=== PATIENT | female | born 1990 | race Caucasian/White ===

== ENCOUNTER 2023-11-01 15:41 | Inpatient (IN) | payer OTHER, SELFPAY ==
[2023-11-01] MEDS: LR 1000 IV ×2 (15:00→17:18)
[2023-11-01 15:51] VITALS: BP 112/87; BMI 28.3
[2023-11-01 16:21] LABS: % Basophils 0.5 % (0-2); % Eosinophils 0.7 % (0-6); % Immature Granulocytes 0.5 % (0-0.5); % Lymphocytes 23.7 % (20.5-51.1); % Monocytes 7.2 % (1.7-9.3); % Neutrophils 67.4 % (42.2-75.2); Absolute Basophils 0.1 10^3/uL (0-0.2); Absolute Eosinophils 0.1 10^3/uL (0-0.7); Absolute Immature Granulocytes 0.1 10^3/uL (0-0.05); Absolute Lymphocytes 3.1 10^3/uL (1.2-3.4); Absolute Neutrophils 8.9 10^3/uL (1.4-6.5); Hematocrit 36.5 % (37.0-47.0); Hemoglobin 13.3 g/dL (12.0-16.0); Mean Corp Hgb Conc. 36.4 g/dL (33.0-37.0); Mean Corpuscular Hgb 31.5 pg (27.0-31.0); Mean Corpuscular Volume 86.5 fL (81.0-99.0); Mean Platelet Volume 10.8 fL (7.4-10.4); Nucleated Red Blood Cells % 0 %; Platelet Count 337 10^3/uL (130-400); Red Blood Cell Count 4.22 10^6/uL (4.20-5.40); Red Cell Dist. Width 13.1 % (11.5-14.5); White Blood Cell Count 13.1 10^3/uL (4.8-10.8)
[2023-11-01] MEDS: SUBLIMAZE 100 MCG EPIDURAL (17:04)
[2023-11-01] MEDS: FENTANYL/BUPIVACAINE 100 EPIDURAL (17:04)
[2023-11-01] MEDS: BICITRA 30 ML PO (20:18)
[2023-11-01] MEDS: TYLENOL 1000 MG PO (20:18)
[2023-11-01] MEDS: ANCEF 10 IV (20:25)
[2023-11-01] MEDS: TYLENOL 650 MG PO (23:26)
[2023-11-02] MEDS: MYLICON 80 MG PO (01:53)
[2023-11-02] MEDS: TORADOL 15 MG IV ×4 (02:51→21:16)
[2023-11-02] MEDS: PERCOCET 5/325 1 TABLET PO ×2 (03:49→21:30)
[2023-11-02 04:10] LABS: Hemoglobin 10.9 g/dL (12.0-16.0); Mean Corp Hgb Conc. 36.3 g/dL (33.0-37.0); Mean Corpuscular Hgb 31.4 pg (27.0-31.0); Mean Corpuscular Volume 86.5 fL (81.0-99.0); Mean Platelet Volume 10.6 fL (7.4-10.4); Platelet Count 261 10^3/uL (130-400); Red Blood Cell Count 3.47 10^6/uL (4.20-5.40); Red Cell Dist. Width 13.2 % (11.5-14.5); White Blood Cell Count 18.4 10^3/uL (4.8-10.8)
--- NOTE | 2023-11-02 07:15 | W.PN.ANS.POP ---
Anesthesia Post Operative
- Anesthesia Post Op Note
Vital Signs Stable-See Nursing Note: Yes
Airway Patent: Yes
Adequate Pain Control: Yes
Change in Mental Status: No
Current Postoperative Nausea & Vomiting: No
Anesthesia Complications: No
General Anesthetic Recall: No
Unplanned Admission: No
Post Op Hydration Adequate: Yes
[2023-11-02] MEDS: SENOKOT-S 1 TABLET PO (15:15)
[2023-11-02 16:40] LABS: Syphilis/T. pallidum Ab Reflex Negative (Negative)
[2023-11-03] MEDS: PERCOCET 5/325 1 TABLET PO ×2 (05:01→12:50)
[2023-11-03] MEDS: MOTRIN 600 MG PO ×2 (05:02→19:34)
[2023-11-03] MEDS: SENOKOT-S 1 TABLET PO (19:34)
[2023-11-04] MEDS: MOTRIN 600 MG PO ×2 (01:57→08:12)
[2023-11-04] MEDS: MYLICON 80 MG PO (08:12)
--- NOTE | 2023-11-04 11:54 | W.DS.TRANS ---
DC Summary - Podiatric Physician
-
Discharge Instructions:
Discharge Diagnosis/Procedures primary cs
Instructions:
Stand-Alone Forms: LDRP Delivery
Changes to Home Medications: No
Discharge Medications:
DC Medications w/original date entered in [facility]
prenat.vits,carmen,reb-qhlb-[id number] 1 tab PO DAILY Supplement 11/01/23
ibuprofen 600 mg tablet 600 mg PO Q6HPRN PRN cramps #90 tabs 11/04/23
Home Medication Changes
Pending Results: Yes
Additional Pending Results:
pathology
Total time spent discharging patient (in min): 20
== END 2023-11-04 13:06 | disposition home or self-care (01) | DRG 788 ==
LOC: LDRP 15:41
PROVIDERS: Obstetrics & Gynecology; ADMITTING PHYSICIAN Obstetrics & Gynecology; FAMILY PHYSICIAN Family Medicine
PROC: 10D00Z1 Extraction of Products of Conception, Low, Open Approach (ICD-10-PCS; 2023-11-02)
DX: O76 Abnormality in fetal heart rate and rhythm complicating labor and delivery (principal); O77.0 Labor and delivery complicated by meconium in amniotic fluid; Z3A.40 40 weeks gestation of pregnancy; Z37.0 Single live birth
CPT/HCPCS: 88307; 36415; 85025; 85027; 86780; 86850; 86900; 86901

== ENCOUNTER → 2025-04-13 08:35 | Outpatient (REF) | payer OTHER, SELFPAY | LOC: WDC 08:35 | PROVIDERS: ATTENDING PHYSICIAN Obstetrics & Gynecology | DX: N63.22 Unspecified lump in the left breast, upper inner quadrant (principal) | CPT/HCPCS: 76642 ==

== ENCOUNTER → 2025-04-20 08:30 | Outpatient (REF) | payer OTHER, SELFPAY ==
--- NOTE | 2025-04-20 15:20 | OID.BR.INTR ---
OID Breast Navigator - Initial
- -
Did not meet patient at time of biopsy. Will follow up per protocol.
== END ==
LOC: WDC 08:30
PROVIDERS: ATTENDING PHYSICIAN Obstetrics & Gynecology
DX: N63.22 Unspecified lump in the left breast, upper inner quadrant (principal)
CPT/HCPCS: 19083; 88305; A4648

== ENCOUNTER → 2025-04-30 09:55 | Outpatient (REF) | payer OTHER, SELFPAY | LOC: WDC 09:55 | PROVIDERS: ATTENDING PHYSICIAN Surgery; FAMILY PHYSICIAN Family Medicine | DX: R92.2 Inconclusive mammogram (principal); Z85.3 Personal history of malignant neoplasm of breast; C50.412 Malignant neoplasm of upper-outer quadrant of left female breast; Z17.1 Estrogen receptor negative status [ER-] | CPT/HCPCS: 76641 ==

== ENCOUNTER 2025-05-04 05:46 | Day surgery (SDC) | payer OTHER, SELFPAY ==
[2025-05-04] VITALS (8 sets, daily range): BP systolic 84–107; BP diastolic 55–74; BMI 22.7
[2025-05-04] MEDS: NORMOSOL-R/PLASMALYTE-A 1000 IV (06:25)
[2025-05-04] MEDS: VIBRAMYCIN 270 MG IV (06:25)
[2025-05-04] MEDS: NEURONTIN 300 MG PO (06:25)
[2025-05-04] MEDS: TYLENOL 1000 MG PO (06:25)
== END 2025-05-04 08:55 | disposition home or self-care (01) ==
LOC: SDS 05:46
PROVIDERS: ATTENDING PHYSICIAN Obstetrics & Gynecology
DX: O02.1 Missed abortion (principal); Z3A.08 8 weeks gestation of pregnancy
CPT/HCPCS: 59820; 86850; 86900; 86901; 88305

== ENCOUNTER → 2025-05-08 09:17 | Outpatient (REF) | payer OTHER, SELFPAY ==
[2025-05-08 10:05] VITALS: BP 112/83; BP_SYST 84; BMI 22.9
[2025-05-08] MEDS: ANCEF 5 IV (10:05)
[2025-05-08 11:10] VITALS: BP 101/72; BP_SYST 73
[2025-05-08 11:15] VITALS: BP 104/69; BP 97/71; BP_SYST 74; BP_SYST 90
== END ==
LOC: RADI 09:17
PROVIDERS: ATTENDING PHYSICIAN Internal Medicine Hematology & Oncology
DX: C50.212 Malignant neoplasm of upper-inner quadrant of left female breast (principal)
CPT/HCPCS: 36561; 76937; 77001; 99152; 99153; C1788

== ENCOUNTER → 2025-05-21 08:29 | Outpatient (REF) | payer OTHER, SELFPAY ==
[2025-05-21 08:43] LABS: Hematocrit 34.6 % (37.0-47.0); Hemoglobin 11.9 g/dL (12.0-16.0); Mean Corp Hgb Conc. 34.4 g/dL (33.0-37.0); Mean Corpuscular Volume 88.9 fL (81.0-99.0); Platelet Count 276 10^3/uL (130-400); Red Cell Dist. Width 12.1 % (11.5-14.5)
--- NOTE | 2025-05-21 13:19 | W.PN.GENERIC ---
Assessment / Plan
-
The site was cleansed with Chloroprep, skin prep was applied prior to placement of two steri-strips which brought the edges together. Pt advised to keep strips in place for 5-7days. She was advised to call IR to return for a repeat site check if
she becomes febrile, experiences pain, redness or discharge from the site. Pt demonstrated understanding and was d/c'd to home in stable condition.
Physician Progress Note
Subjective
Pt sent from Oncology office for a chest port site check. Pt is without complaints, and denies fever, chills and/or pain. She reports having pulled the remnant surgical glue off and noticed there was a small opening of the incision. The port is
reportedly fully functioning.
Objective
Lab Results
05/21/25 08:40
The lateral 2mm of the port incision is not in opposition like the rest of the incision. No subcutaneous tissue is seen. There is no erythema, ecchymosis, warmth, discharge or tenderness noted at the port site.
[2025-05-21 16:29] LABS: ALT (SGPT) 19 U/L (0-35); AST (SGOT) 19 U/L (14-36); Albumin 4.6 g/dl (3.5-5.0); Alkaline Phosphatase 47 U/L (38-126); Blood Urea Nitrogen 10 mg/dl (7-17); Calcium 9.4 mg/dl (8.4-10.2); Carbon Dioxide 23 mmol/L (22-30); Chloride 105 mmol/L (98-107); Glucose 109 mg/dl (70-99); Potassium 4.0 mmol/L (3.5-5.1); Sodium 133 mmol/L (135-145); Total Protein 6.9 g/dl (6.3-8.2); eGFR > 60.00
== END ==
LOC: OIDL 08:29
PROVIDERS: ATTENDING PHYSICIAN Internal Medicine Hematology & Oncology
DX: C50.212 Malignant neoplasm of upper-inner quadrant of left female breast (principal)
CPT/HCPCS: 36415; 80053; 84443; 85025

== ENCOUNTER → 2025-05-28 07:47 | Outpatient (REF) | payer OTHER, SELFPAY ==
[2025-05-28 08:01] LABS: Hematocrit 31.3 % (37.0-47.0); Hemoglobin 11.1 g/dL (12.0-16.0); Mean Corp Hgb Conc. 35.5 g/dL (33.0-37.0); Mean Corpuscular Volume 88.7 fL (81.0-99.0); Platelet Count 256 10^3/uL (130-400); Red Cell Dist. Width 12.6 % (11.5-14.5)
[2025-05-28 09:29] LABS: ALT (SGPT) 21 U/L (0-35); AST (SGOT) 20 U/L (14-36); Albumin 4.3 g/dl (3.5-5.0); Alkaline Phosphatase 46 U/L (38-126); Blood Urea Nitrogen 8 mg/dl (7-17); Calcium 9.0 mg/dl (8.4-10.2); Carbon Dioxide 25 mmol/L (22-30); Chloride 104 mmol/L (98-107); Glucose 108 mg/dl (70-99); Potassium 3.9 mmol/L (3.5-5.1); Sodium 138 mmol/L (135-145); Total Protein 6.6 g/dl (6.3-8.2); eGFR > 60.00
== END ==
LOC: OIDL 07:47
PROVIDERS: ATTENDING PHYSICIAN Internal Medicine Hematology & Oncology
DX: C50.212 Malignant neoplasm of upper-inner quadrant of left female breast (principal)
CPT/HCPCS: 36415; 80053; 84443; 85025

== ENCOUNTER → 2025-05-30 15:06 | Outpatient (REF) | payer OTHER, SELFPAY | LOC: RAD 15:06 | PROVIDERS: ATTENDING PHYSICIAN Internal Medicine Hematology & Oncology; FAMILY PHYSICIAN Family Medicine | DX: C50.212 Malignant neoplasm of upper-inner quadrant of left female breast (principal); M79.662 Pain in left lower leg | CPT/HCPCS: 93971 ==

== ENCOUNTER → 2025-06-04 08:02 | Outpatient (REF) | payer OTHER, SELFPAY ==
[2025-06-04 08:54] LABS: Hematocrit 35.0 % (37.0-47.0); Hemoglobin 12.1 g/dL (12.0-16.0); Mean Corp Hgb Conc. 34.6 g/dL (33.0-37.0); Mean Corpuscular Volume 89.1 fL (81.0-99.0); Platelet Count 355 10^3/uL (130-400); Red Cell Dist. Width 13.0 % (11.5-14.5)
[2025-06-04 09:30] LABS: ALT (SGPT) 42 U/L (0-35); AST (SGOT) 28 U/L (14-36); Albumin 4.7 g/dl (3.5-5.0); Alkaline Phosphatase 47 U/L (38-126); Blood Urea Nitrogen 10 mg/dl (7-17); Calcium 9.4 mg/dl (8.4-10.2); Carbon Dioxide 26 mmol/L (22-30); Chloride 104 mmol/L (98-107); Glucose 74 mg/dl (70-99); Potassium 4.0 mmol/L (3.5-5.1); Sodium 139 mmol/L (135-145); Total Protein 7.1 g/dl (6.3-8.2); eGFR > 60.00
== END ==
LOC: OIDL 08:02
PROVIDERS: ATTENDING PHYSICIAN Internal Medicine Hematology & Oncology
DX: C50.212 Malignant neoplasm of upper-inner quadrant of left female breast (principal)
CPT/HCPCS: 36415; 80053; 85025

== ENCOUNTER → 2025-06-11 08:03 | Outpatient (REF) | payer OTHER, SELFPAY ==
[2025-06-11 08:20] LABS: Hematocrit 35.3 % (37.0-47.0); Hemoglobin 12.4 g/dL (12.0-16.0); Mean Corp Hgb Conc. 35.1 g/dL (33.0-37.0); Mean Corpuscular Volume 88.5 fL (81.0-99.0); Platelet Count 331 10^3/uL (130-400); Red Cell Dist. Width 13.2 % (11.5-14.5)
[2025-06-11 09:37] LABS: ALT (SGPT) 29 U/L (0-35); AST (SGOT) 20 U/L (14-36); Albumin 4.8 g/dl (3.5-5.0); Alkaline Phosphatase 63 U/L (38-126); Blood Urea Nitrogen 10 mg/dl (7-17); Calcium 9.5 mg/dl (8.4-10.2); Carbon Dioxide 27 mmol/L (22-30); Chloride 104 mmol/L (98-107); Glucose 87 mg/dl (70-99); Potassium 4.1 mmol/L (3.5-5.1); Sodium 138 mmol/L (135-145); Total Protein 7.1 g/dl (6.3-8.2); eGFR > 60.00
== END ==
LOC: OIDL 08:03
PROVIDERS: ATTENDING PHYSICIAN Internal Medicine Hematology & Oncology
DX: C50.212 Malignant neoplasm of upper-inner quadrant of left female breast (principal)
CPT/HCPCS: 36415; 80053; 84443; 85025

== ENCOUNTER → 2025-06-18 08:30 | Outpatient (REF) | payer OTHER, SELFPAY ==
[2025-06-18 08:42] LABS: Hematocrit 36.1 % (37.0-47.0); Hemoglobin 12.6 g/dL (12.0-16.0); Mean Corp Hgb Conc. 34.9 g/dL (33.0-37.0); Mean Corpuscular Volume 89.1 fL (81.0-99.0); Platelet Count 318 10^3/uL (130-400); Red Cell Dist. Width 13.2 % (11.5-14.5)
[2025-06-18 10:11] LABS: ALT (SGPT) 26 U/L (0-35); AST (SGOT) 23 U/L (14-36); Albumin 5.0 g/dl (3.5-5.0); Alkaline Phosphatase 49 U/L (38-126); Blood Urea Nitrogen 9 mg/dl (7-17); Calcium 9.8 mg/dl (8.4-10.2); Carbon Dioxide 28 mmol/L (22-30); Chloride 103 mmol/L (98-107); Glucose 88 mg/dl (70-99); Potassium 4.1 mmol/L (3.5-5.1); Sodium 139 mmol/L (135-145); Total Protein 7.6 g/dl (6.3-8.2); eGFR > 60.00
[2025-06-18 10:38] LABS: TSH 1.51 uIU/ml (0.47-4.68)
== END ==
LOC: OIDL 08:30
PROVIDERS: ATTENDING PHYSICIAN Internal Medicine Hematology & Oncology
DX: C50.212 Malignant neoplasm of upper-inner quadrant of left female breast (principal)
CPT/HCPCS: 36415; 80053; 84439; 84443; 85025

== ENCOUNTER → 2025-06-25 08:17 | Outpatient (REF) | payer OTHER, SELFPAY ==
[2025-06-25 08:28] LABS: Hematocrit 34.1 % (37.0-47.0); Hemoglobin 11.7 g/dL (12.0-16.0); Mean Corp Hgb Conc. 34.3 g/dL (33.0-37.0); Mean Corpuscular Volume 89.3 fL (81.0-99.0); Platelet Count 255 10^3/uL (130-400); Red Cell Dist. Width 13.3 % (11.5-14.5)
[2025-06-25 09:38] LABS: ALT (SGPT) 23 U/L (0-35); AST (SGOT) 23 U/L (14-36); Albumin 4.8 g/dl (3.5-5.0); Alkaline Phosphatase 42 U/L (38-126); Blood Urea Nitrogen 10 mg/dl (7-17); Calcium 9.2 mg/dl (8.4-10.2); Carbon Dioxide 28 mmol/L (22-30); Chloride 104 mmol/L (98-107); Glucose 94 mg/dl (70-99); Potassium 3.8 mmol/L (3.5-5.1); Sodium 138 mmol/L (135-145); Total Protein 7.4 g/dl (6.3-8.2); eGFR > 60.00
== END ==
LOC: OIDL 08:17
PROVIDERS: ATTENDING PHYSICIAN Internal Medicine Hematology & Oncology
DX: C50.212 Malignant neoplasm of upper-inner quadrant of left female breast (principal)
CPT/HCPCS: 36415; 80053; 85025

== ENCOUNTER → 2025-07-02 08:07 | Outpatient (REF) | payer OTHER, SELFPAY ==
[2025-07-02 08:20] LABS: Hematocrit 35.8 % (37.0-47.0); Hemoglobin 12.5 g/dL (12.0-16.0); Mean Corp Hgb Conc. 34.9 g/dL (33.0-37.0); Mean Corpuscular Volume 88.8 fL (81.0-99.0); Platelet Count 268 10^3/uL (130-400); Red Cell Dist. Width 13.3 % (11.5-14.5)
[2025-07-02 09:24] LABS: ALT (SGPT) 20 U/L (0-35); AST (SGOT) 21 U/L (14-36); Albumin 4.8 g/dl (3.5-5.0); Alkaline Phosphatase 52 U/L (38-126); Blood Urea Nitrogen 12 mg/dl (7-17); Calcium 9.7 mg/dl (8.4-10.2); Carbon Dioxide 29 mmol/L (22-30); Chloride 101 mmol/L (98-107); Glucose 88 mg/dl (70-99); Potassium 4.2 mmol/L (3.5-5.1); Sodium 138 mmol/L (135-145); Total Protein 7.2 g/dl (6.3-8.2); eGFR > 60.00
== END ==
LOC: OIDL 08:07
PROVIDERS: ATTENDING PHYSICIAN Internal Medicine Hematology & Oncology
DX: C50.212 Malignant neoplasm of upper-inner quadrant of left female breast (principal)
CPT/HCPCS: 36415; 80053; 84443; 85025

== ENCOUNTER → 2025-07-09 08:00 | Outpatient (REF) | payer OTHER, SELFPAY ==
[2025-07-09 08:09] LABS: Hematocrit 33.2 % (37.0-47.0); Hemoglobin 11.8 g/dL (12.0-16.0); Mean Corp Hgb Conc. 35.5 g/dL (33.0-37.0); Mean Corpuscular Volume 88.8 fL (81.0-99.0); Platelet Count 262 10^3/uL (130-400); Red Cell Dist. Width 13.4 % (11.5-14.5)
[2025-07-09 09:00] LABS: ALT (SGPT) 18 U/L (0-35); AST (SGOT) 20 U/L (14-36); Albumin 4.7 g/dl (3.5-5.0); Alkaline Phosphatase 41 U/L (38-126); Blood Urea Nitrogen 12 mg/dl (7-17); Calcium 9.2 mg/dl (8.4-10.2); Carbon Dioxide 26 mmol/L (22-30); Chloride 104 mmol/L (98-107); Glucose 101 mg/dl (70-99); Potassium 4.0 mmol/L (3.5-5.1); Sodium 137 mmol/L (135-145); Total Protein 7.3 g/dl (6.3-8.2); eGFR > 60.00
== END ==
LOC: OIDL 08:00
PROVIDERS: ATTENDING PHYSICIAN Internal Medicine Hematology & Oncology
DX: C50.212 Malignant neoplasm of upper-inner quadrant of left female breast (principal)
CPT/HCPCS: 36415; 80053; 85025

== ENCOUNTER → 2025-07-16 08:09 | Outpatient (REF) | payer OTHER, SELFPAY ==
[2025-07-16 08:24] LABS: Hematocrit 33.8 % (37.0-47.0); Hemoglobin 11.7 g/dL (12.0-16.0); Mean Corp Hgb Conc. 34.6 g/dL (33.0-37.0); Mean Corpuscular Volume 90.6 fL (81.0-99.0); Platelet Count 256 10^3/uL (130-400); Red Cell Dist. Width 13.5 % (11.5-14.5)
[2025-07-16 10:21] LABS: ALT (SGPT) 18 U/L (0-35); AST (SGOT) 21 U/L (14-36); Albumin 4.7 g/dl (3.5-5.0); Alkaline Phosphatase 44 U/L (38-126); Blood Urea Nitrogen 10 mg/dl (7-17); Calcium 9.5 mg/dl (8.4-10.2); Carbon Dioxide 27 mmol/L (22-30); Chloride 103 mmol/L (98-107); Glucose 89 mg/dl (70-99); Potassium 4.3 mmol/L (3.5-5.1); Sodium 138 mmol/L (135-145); Total Protein 6.9 g/dl (6.3-8.2); eGFR > 60.00
== END ==
LOC: OIDL 08:09
PROVIDERS: ATTENDING PHYSICIAN Internal Medicine Hematology & Oncology
DX: C50.212 Malignant neoplasm of upper-inner quadrant of left female breast (principal)
CPT/HCPCS: 36415; 80053; 85025

== ENCOUNTER → 2025-07-23 08:02 | Outpatient (REF) | payer OTHER, SELFPAY ==
[2025-07-23 08:20] LABS: Hematocrit 33.4 % (37.0-47.0); Hemoglobin 11.8 g/dL (12.0-16.0); Mean Corp Hgb Conc. 35.3 g/dL (33.0-37.0); Mean Corpuscular Volume 90.5 fL (81.0-99.0); Platelet Count 263 10^3/uL (130-400); Red Cell Dist. Width 13.7 % (11.5-14.5)
[2025-07-23 08:57] LABS: ALT (SGPT) 22 U/L (0-35); AST (SGOT) 23 U/L (14-36); Albumin 4.5 g/dl (3.5-5.0); Alkaline Phosphatase 44 U/L (38-126); Blood Urea Nitrogen 11 mg/dl (7-17); Calcium 9.3 mg/dl (8.4-10.2); Carbon Dioxide 26 mmol/L (22-30); Chloride 105 mmol/L (98-107); Glucose 85 mg/dl (70-99); Potassium 3.6 mmol/L (3.5-5.1); Sodium 139 mmol/L (135-145); Total Protein 6.8 g/dl (6.3-8.2); eGFR > 60.00
== END ==
LOC: OIDL 08:02
PROVIDERS: ATTENDING PHYSICIAN Internal Medicine Hematology & Oncology
DX: C50.212 Malignant neoplasm of upper-inner quadrant of left female breast (principal)
CPT/HCPCS: 36415; 80053; 85025